=== PATIENT | female | born 1995 | race Two or more races ===

== ENCOUNTER 2022-05-08 12:19 | Emergency (ER) | payer MEDICAID ==
[~2022-05-08] VITALS: Ht 152.4 cm; Wt 59.0 kg
--- NOTE | 2022-05-08 12:32 | NUR ---
THE PATIENT PRESENTED TO ER FOR C/O NAUSEA AND VOMITING, ABDOMINAL CRAMPING SINCE 10PM LAST NIGHT. RATES PAIN 5/10. WILL CONTINUE TO MONITOR THE PATIENT.
--- NOTE | 2022-05-08 12:37 | NUR ---
DR GARZON AT THE BEDSIDE
--- NOTE | 2022-05-08 12:49 | NUR ---
IV LINE IS ESTABLISHED, BLOOD SPECIMEN COLLECTED AND SENT TO THE LAB. THE LINE IS SALINE LOCKED.
[2022-05-08] MEDS ORDERED: MORPHINE SULFATE INJ 2 MG/ML DISP.SYRIN ONE (12:50)
[2022-05-08] MEDS ORDERED: ONDANSETRON HCL/PF 4 MG/2 ML VIAL ONE ×2 (12:50→14:15)
[2022-05-08 12:54] LABS: BASOPHILS % (AUTO) 0.1 % (0.0-2.0); EOSINOPHILS % (AUTO) 0.3 % (0.0-6.0); HEMATOCRIT 47 % (33-45); HEMOGLOBIN 15.5 g/dL (11.5-14.8); LYMPHOCYTES # (AUTO) 0.4 K/uL (0.8-4.8); LYMPHOCYTES % (AUTO) 3.6 % (20.0-44.0); MEAN CORPUSCULAR HGB CONC 33 g/dl (31.0-36.0); MEAN CORPUSCULAR VOLUME 94 fL (82-100); MONOCYTES # (AUTO) 0.2 K/uL (0.1-1.30); NEUTROPHILS # (AUTO) 9.2 K/uL (1.8-8.9); PLATELET COUNT (AUTO) 276 K/uL (150-450); RED BLOOD CELL COUNT(AUTO) 4.99 MIL/uL (4.0-5.2); WHITE BLOOD COUNT (AUTO) 9.8 K/uL (4.3-11.0)
[2022-05-08] MEDS ORDERED: ONDANSETRON HCL/PF 4 MG/2 ML VIAL IVP ONE ×2 (13:00→14:30)
[2022-05-08] MEDS ORDERED: MORPHINE SULFATE INJ 2 MG/ML DISP.SYRIN IV ONE (13:00)
[2022-05-08 13:03] LABS: CALCIUM, SERUM 9.6 mg/dL (8.5-10.1); CREATININE 0.8 mg/dL (0.6-1.3); POTASSIUM 3.4 mmol/L (3.5-5.1)
--- NOTE | 2022-05-08 13:05 | NUR ---
URINE COLLECTED AND SENT TO THE LAB
[2022-05-08 13:09] LABS: ALBUMIN 4.4 g/dL (3.4-5.0); BILIRUBIN,DIRECT 0.3 mg/dL (0.0-0.2); BILIRUBIN,TOTAL 1.2 mg/dL (0.2-1.0); TOTAL PROTEIN, SERUM 8.1 g/dL (6.4-8.2)
[2022-05-08 13:20] LABS: BILIRUBIN,URINE SMALL (NEGATIVE); COLOR,URINE DARK YELLOW (YELLOW); LEUKOCYTE ESTERASE ,URINE NEGATIVE (NEGATIVE); NITRITE, URINE NEGATIVE (NEGATIVE); PROTEIN,URINE 30 mg/dl (NEGATIVE); UGLUCOSE NEGATIVE (NEGATIVE); UROBILINOGEN,URINE 0.2 EU/dL (0.2)
--- NOTE | 2022-05-08 13:35 | NUR ---
THE PATIENT IS TAKEN TO CT VIA W/CHAIR
--- NOTE | 2022-05-08 13:49 | NUR ---
THE PATIENT IS BACK FROM CT VIA W/CHAIR
[2022-05-08 14:02] LABS: BACTERIA,URINE Few /HPF (None Seen); WBC,URINE 0-2 /HPF (0-3)
[2022-05-08 14:03] LABS: MUCUS,URINE Moderate /LPF (None Seen); SQUAMOUS EPITHELIAL CELL,UR Few /HPF (None Seen)
[2022-05-08] MEDS ORDERED: ONDA4TAB5 PO (14:07)
[2022-05-08] MEDS ORDERED: IV NS 0.9% 500 ML BAG IV ONE (14:30)
[2022-05-08 14:53] VITALS: BP 119/74
--- NOTE | 2022-05-08 14:53 | NUR ---
IV removed. Catheter intact and site benign. Pressure and 4x4 applied to site. No bleeding noted.Patient discharged to home in stable condition. Written and verbal after care instructions given. Patient verbalizes understanding of instruction.
== END 2022-05-08 14:53 | disposition home or self-care (01) ==
LOC: ER 12:25
DX: R10.9 Unspecified abdominal pain (principal); R11.2 Nausea with vomiting, unspecified; Z88.0 Allergy status to penicillin
CPT/HCPCS: 99284; 74176; 96374; 96375; 96376; 85025; 80048; 83690; 80076; 84703; 81001; 36415; J2405 ×2; J7040; J2270